=== PATIENT | female | born 1950 | race Two or more races ===

== ENCOUNTER 2016-11-28 01:47 | Emergency (ER) | payer SELFPAY ==
[~2016-11-28] VITALS: Ht 165.1 cm; Wt 70.3 kg
[2016-11-28 02:00] VITALS: BP 174/92
--- NOTE | 2016-11-28 02:06 | Emergency Room Report ---
History of Present Illness General Chief Complaint: Headache Source: Patient, Family Member Present Illness HPI Is a 66-year-old female with history of CAD with a pacemaker. She presents with chief complaint of headache. She's been having cough cold and viral disposition for a week. Couple days ago she had a sharp headache that went away quickly. She's been complaining of headache all day today. Headache is diffuse and throbbing in nature. 10 out of 10. Her daughter took her blood pressure and it was 182/94. She gave her her blood pressure medication. Blood pressure remained systolic 160-180. Patient has no chest pain. No to was concerned called 911. Patient felt nauseous but no vomiting. No diaphoresis. She wanted to go to [place] but ambulance took her here. Allergies: Coded Allergies: ACETAMINOPHEN (Verified Allergy, Unknown, 11/28/16) HYDROCODONE (Verified Allergy, Unknown, 11/28/16) METOCLOPRAMIDE (Verified Allergy, Unknown, 11/28/16) PENICILLINS (Verified Allergy, Unknown, 11/28/16) Patient History Past Medical History: see triage record, old chart reviewed, HTN, CAD Past Surgical History: pacemaker, other Pertinent Family History: none Social History: Denies: smoking Now: No Immunizations: other Reviewed Nursing Documentation: PMH: Agreed, PSxH: Agreed Nursing Documentation-PMH Hx Hypertension: Yes Hx Pacemaker: Yes Review of Systems Eye: Denies: blurred vision, eye pain ENT: Denies: ear pain, nose congestion, throat swelling Respiratory: Denies: cough, shortness of breath Cardiovascular: Denies: chest pain, palpitations Gastrointestinal: Denies: abdominal pain, diarrhea, nausea, vomiting Musculoskeletal: Denies: back pain, joint pain Skin: Denies: rash Neurological: Reports: headache, Denies: numbness Endocrine: Denies: increased thirst, increased urine Hematologic/Lymphatic: Denies: easy bruising All Other Systems: negative except mentioned in HPI Physical Exam Vital Signs Date Time Temp Pulse Resp B/P Pulse Ox O2 Delivery O2 Flow Rate FiO2 11/28/16 01:55 98.1 61 16 174/92 97 Room Air nidus with hypertension Sp02 EP Interpretation: reviewed, normal General Appearance: well appearing, no apparent distress, alert Head: normocephalic, atraumatic Eyes: bilateral eye EOMI, bilateral eye PERRL ENT: hearing grossly normal, normal pharynx Neck: full range of motion, supple, no meningismus Respiratory: no respiratory distress Cardiovascular #1: regular rate, rhythm, no murmur Gastrointestinal: normal bowel sounds, non tender, no mass, no organomegaly, no bruit, non-distended Musculoskeletal: back normal, gait/station normal, normal range of motion Neurologic: alert, oriented x3 Psychiatric: mood/affect normal Skin: warm/dry Medical Decision Making Diagnostic Impression: Primary Impression: Headache Qualified Codes: R51 - Headache Additional Impression: Hypertension Qualified Codes: I10 - Essential (primary) hypertension ER Course She presents with headache. They call family to pick him up to go to [place]. She does want Zofran for nausea here. Differential for this includes TIA CVA, bleed, or neoplastic process to name a few. This could also be cardiac related. Patient is competent to sign out AGAINST MEDICAL ADVICE. Last Vital Signs Date Time Temp Pulse Resp B/P Pulse Ox O2 Delivery O2 Flow Rate FiO2 11/28/16 01:55 98.1 61 16 174/92 97 Room Air Status: unchanged Disposition: AGAINST MEDICAL ADVICE Condition: Serious Patient Instructions: General Headache Without Cause Additional Instructions: You are leaving AGAINST MEDICAL ADVICE. Go to [facility]. This is your choice. Return if symptom worsen or if you change your mind. JOHANNA GUADALUPE M.D. Nov 28, 2016 02:06
[2016-11-28 02:10] VITALS: BP 174/92
== END 2016-11-28 02:10 | disposition left against medical advice (07) ==
LOC: EDBD 01:47 → EMR 02:06
DX: R51 Headache (principal); I10 Essential (primary) hypertension; I25.10 Atherosclerotic heart disease of native coronary artery without angina pectoris; Z95.0 Presence of cardiac pacemaker; Z88.6 Allergy status to analgesic agent; Z88.8 Allergy status to other drugs, medicaments and biological substances; Z88.0 Allergy status to penicillin; R11.0 Nausea
CPT/HCPCS: 99283